=== PATIENT | female | born 1980 | race African-American/Black ===

== ENCOUNTER 2016-11-06 11:31 | Emergency (ER) | payer MEDICAID ==
[~2016-11-06] VITALS: Ht 172.7 cm; Wt 81.6 kg
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
[2016-11-06 12:24] LABS: BASOPHILS % (AUTO) 0.6 % (0.0-2.0); EOSINOPHILS % (AUTO) 0.1 % (0.0-3.0); LYMPHOCYTES % (AUTO) 15.3 % (20.0-45.0); MEAN CORPUSCULAR HGB CONC 34.1 G/DL (32.0-36.0); MEAN CORPUSCULAR VOLUME 94 FL (80-99); MEAN PLATELET VOLUME 6.4 FL (6.5-10.1); MONOCYTES % (AUTO) 4.8 % (1.0-10.0); NEUTROPHILS % (AUTO) 79.3 % (45.0-75.0); PLATELET COUNT 263 K/UL (150-450); RED BLOOD COUNT 4.16 M/UL (4.20-5.40); RED CELL DISTRIBUTION WIDTH 11.6 % (11.6-14.8); WHITE BLOOD COUNT 15.1 K/UL (4.8-10.8)
[2016-11-06 12:30] LABS: APPEARANCE,URINE CLEAR; KETONES,URINE 3+ (NEGATIVE); LEUKOCYTE ESTERASE ,URINE 2+ (NEGATIVE); NITRITE,URINE NEGATIVE (NEGATIVE); PH,URINE 8 (4.5-8.0); PROTEIN,URINE NEGATIVE (NEGATIVE); UROBILINOGEN,URINE NORMAL MG/DL (0.0-1.0)
[2016-11-06 12:41] LABS: ANION GAP 12 (5-15); CALCIUM 9.1 mg/dL (8.6-10.2); CARBON DIOXIDE 27 mEQ/L (20-30); CHLORIDE 103 mEQ/L (98-107); CREATININE 0.8 mg/dL (0.5-0.9); GLOMERULAR FILTRATION RATE > 60 mL/min (>60); HEMOLYSIS 0; POTASSIUM 3.6 mEQ/L (3.4-4.9); SODIUM 142 mEQ/L (135-145)
[2016-11-06 12:42] LABS: BACTERIA,URINE FEW /HPF; RBC,URINE 0-2 /HPF (0 - 2); SQUAMOUS EPITHELIAL CELL,UR MODERATE /LPF (NONE/OCC)
[2016-11-06] MEDS ORDERED: NITROFURANTOIN100 M2 ORAL (13:27)
[2016-11-06 13:37] VITALS: BP 144/98
--- NOTE | 2016-11-06 14:03 | Diagnostic Imaging Report ---
Indication: Dyspnea Comparison: None A single view chest radiograph was obtained. Findings: Cardiomediastinal appearance is within normal limits for age. Pulmonary vascularity is appropriate. The diaphragmatic contour is smooth and costophrenic angles are sharp. No pleural effusions are identified. The bones are unremarkable. Impression: No acute findings
--- NOTE | 2016-11-09 15:59 | Cardiology Report ---
APPROVED REPORT EKG Measurement Heart [id number] [place] [id number] Normal sinus rhythm Normal ECG
== END 2016-11-06 13:37 | disposition home or self-care (01) ==
LOC: EMR 12:00
DX: R42 Dizziness and giddiness (principal); N39.0 Urinary tract infection, site not specified
CPT/HCPCS: 36415; 71010; 80048; 80300; 81003; 81025; 85025; 93005; 99284

== ENCOUNTER 2016-11-08 20:32 | Emergency (ER) | payer MEDICAID ==
[~2016-11-08] VITALS: Ht 172.7 cm; Wt 81.6 kg
[~2016-11-08 20:32] MED LIST: NITROFURANTOIN100 M2 ORAL
[2016-11-08 20:52] VITALS: BP 143/97
--- NOTE | 2016-11-08 21:29 | Emergency Room Report ---
History of Present Illness General Chief Complaint: Dizziness Source: Patient Present Illness HPI [id number] walk-in here again for dizziness. Was seen/evaluated earlier this week. UA showed UTI. Urine tox + for MJ Patient is currently taking abx for UTI Symptoms have persisted Last time she smoked MJ was 4 days ago Symptoms include palpitations, chest tightness, subjective SOB particularly when ambulating, moving. As per dizziness, she means lightheadedness. She denies room/self spinning. Denies symptoms of vertigo such as dizziness when moving head, changing position Denies associated headache, neck pain/stiffness, fever/chills Is on control Denies leg pain/swelling, self/fam history of DVT/PE She states under "normal life stress." Has 2 kids at home Denies history of anxiety, depression, panic attacks But does state she "couldnt get into my mom's small car earlier" to come to ED because she felt claustrophobic Patient intermittently crying/weepy, stating she's "not one of those people" who have anxiety, "mental problems." Allergies: Coded Allergies: No Known Allergies (Unverified , 11/06/16) Patient History Past Medical History: none Past Surgical History: none Pertinent Family History: none Social History: Reports: drug use Last Menstrual Period: Last month Now: No Immunizations: UTD Reviewed Nursing Documentation: PMH: Agreed, PSxH: Agreed Nursing Documentation-PMH Past Medical History: No Stated History Review of Systems All Other Systems: negative except mentioned in HPI Physical Exam Vital Signs Date Time Temp Pulse Resp B/P (MAP) Pulse Ox O2 Delivery O2 Flow Rate FiO2 11/08/16 20:43 98.8 80 17 143/97 98 Room Air Sp02 EP Interpretation: reviewed, normal General Appearance: normal inspection, well appearing, no apparent distress, alert, GCS 15, non-toxic Head: normocephalic, atraumatic Eyes: bilateral eye PERRL, bilateral eye EOMI ENT: normal ENT inspection, hearing grossly normal, normal voice Neck: normal inspection, full range of motion, supple, no bony tend Respiratory: normal inspection, lungs clear, normal breath sounds, no respiratory distress, no retraction, no wheezing Cardiovascular #1: regular rate, rhythm, no edema Gastrointestinal: normal inspection, normal bowel sounds, non tender, soft, no guarding, no hernia Genitourinary: no CVA tenderness Musculoskeletal: normal inspection, back normal, normal range of motion, Tony' s Sign negative Neurologic: normal inspection, alert, oriented x3, responsive, cotton header III-XII nml as tested, motor strength/tone normal, cerebellar normal, normal gait, speech normal Psychiatric: normal inspection, judgement/insight normal, mood/affect normal Skin: normal inspection, normal color, no rash Medical Decision Making Diagnostic Impression: Primary Impression: Light-headed feeling Additional Impression: Anxiety ER Course Doubt CVA or central nervous or peripheral nervous system process given no focal neuro deficits, no cerebellar signs, no meningismus, no tinnitus, no symptoms c/w peripheral vertigo Doubt PE given normal D-dimer, normal O2 sat, not tachypnic or tachycardic Doubt ACS given duration for symptoms, serial normal ECG without ischemia Strong suspicion for anxiety given feelings of claustrophobia/agorophobia, palpitations, subjective SOB and improved symptoms with PO ativan in ED Leuks downtrending from previous visit No obvious metabolic derangement WilL Rx short course ativan Advised completion of Abx for UTI PMD followup in 2-3 days Last Vital Signs Date Time Temp Pulse Resp B/P (MAP) Pulse Ox O2 Delivery O2 Flow Rate FiO2 11/08/16 20:52 98.8 84 15 143/97 98 Room Air Status: improved Disposition: HOME, SELF-CARE Scripts Lorazepam* (ATIVAN*) 0.5 Mg Tablet 0.5 MG ORAL BID for anxiety for 7 Days, #1 TAB Prov: RENUKA GALVIN M.D. 11/08/16 RENUKA GLAVIN M.D. Nov 08, 2016 21:29
[2016-11-08] MEDS ORDERED: LORazepam 0.5mg tab ORAL ONE (21:30)
[2016-11-08 21:50] LABS: BASOPHILS % (AUTO) 0.8 % (0.0-2.0); EOSINOPHILS % (AUTO) 0.3 % (0.0-3.0); LYMPHOCYTES % (AUTO) 19.6 % (20.0-45.0); MEAN CORPUSCULAR HEMOGLOBIN 31.3 PG (27.0-31.0); MEAN CORPUSCULAR HGB CONC 33.2 G/DL (32.0-36.0); MEAN CORPUSCULAR VOLUME 94 FL (80-99); MEAN PLATELET VOLUME 6.3 FL (6.5-10.1); MONOCYTES % (AUTO) 6.1 % (1.0-10.0); NEUTROPHILS % (AUTO) 73.2 % (45.0-75.0); PLATELET COUNT 294 K/UL (150-450); RED BLOOD COUNT 4.41 M/UL (4.20-5.40); RED CELL DISTRIBUTION WIDTH 11.2 % (11.6-14.8); WHITE BLOOD COUNT 13.4 K/UL (4.8-10.8)
[2016-11-08 22:11] LABS: TROPONIN I < 0.30 ng/mL (<=0.30)
[2016-11-08 22:14] LABS: ALANINE AMINOTRANSFERASE 9 U/L (3-33); ALBUMIN/GLOBULIN RATIO 1.5 (1.0-2.7); ANION GAP 14 (5-15); ASPARTATE AMINO TRANSFERASE 12 U/L (5-40); CALCIUM 9.5 mg/dL (8.6-10.2); CARBON DIOXIDE 24 mEQ/L (20-30); CHLORIDE 103 mEQ/L (98-107); CREATININE 0.9 mg/dL (0.5-0.9); GLOMERULAR FILTRATION RATE > 60 mL/min (>60); HEMOLYSIS 5; POTASSIUM 3.6 mEQ/L (3.4-4.9); SODIUM 141 mEQ/L (135-145); TOTAL PROTEIN 7.2 g/dL (6.6-8.7)
[2016-11-08 22:24] LABS: CKMB < 1.5 ng/mL (< 3.8)
[2016-11-08] MEDS ORDERED: ATIVAN0.5 MG ORAL (22:41)
[2016-11-08 22:52] VITALS: BP 121/82
[2016-11-08 23:59] VITALS: BP 121/82
--- NOTE | 2016-11-10 19:06 | Cardiology Report ---
APPROVED REPORT EKG Measurement Heart [id number] [place] [id number] Normal sinus rhythm Normal ECG
== END 2016-11-08 22:59 | disposition home or self-care (01) ==
LOC: EMR 21:30
DX: R42 Dizziness and giddiness (principal); F41.9 Anxiety disorder, unspecified; Z79.3 Long term (current) use of hormonal contraceptives
CPT/HCPCS: 36415; 80053; 82553; 84484; 85025; 85379; 93005; 99283

== ENCOUNTER 2019-09-27 13:36 | Emergency (ER) | payer MEDICAID ==
[~2019-09-27] VITALS: Ht 170.2 cm; Wt 89.4 kg
[~2019-09-27 13:36] MED LIST changes: +ATIVAN0.5 MG ORAL
--- NOTE | 2019-09-27 14:16 | Emergency Room Report ---
History of Present Illness General Chief Complaint: Lower Extremity Injury Source: Patient Present Illness HPI 39-year-old female presents to the emergency department complaining of 7 out of 10 severity localized pain, tenderness and swelling to the right fourth toe after stubbing it on a dumbbell last night. Patient reports pain is exacerbated upon taking a step. Patient reports she is able to weight-bear on the foot however when she attempts to push off while walking she has exacerbation of pain. She denies bruising, open wounds or bleeding. She denies paresthesias, skin color changes or loss of gross motor movement in the affected extremities. Patient reports pain with flexing the toes. No other aggravating or relieving factors at this time. She states she is not taking any medications for her symptoms. She denies significant pmhx. Allergies: Coded Allergies: No Known Allergies (Unverified , 11/06/16) COVID-19 Screening Contact w/high risk pt: No Experienced COVID-19 symptoms?: No COVID-19 Testing performed WATER/WASTEWATER ENGINEER: No Patient History Past Medical History: see triage record Past Surgical History: none Pertinent Family History: none Last Menstrual Period: 09/20/19 Now: No Reviewed Nursing Documentation: PMH: Agreed; PSxH: Agreed Nursing Documentation-PMH Past Medical History: No Stated History Review of Systems All Other Systems: negative except mentioned in HPI Physical Exam Vital Signs Date Time Temp Pulse Resp B/P (MAP) Pulse Ox O2 Delivery O2 Flow Rate FiO2 09/27/19 13:43 98.4 67 16 133/82 (99) 99 Room Air Sp02 EP Interpretation: reviewed, normal General Appearance: no apparent distress, alert, GCS 15, non-toxic Head: normocephalic, atraumatic Eyes: bilateral eye normal inspection, bilateral eye PERRL ENT: hearing grossly normal, normal voice Neck: full range of motion Respiratory: lungs clear, normal breath sounds, speaking full sentences Cardiovascular #1: regular rate, rhythm, normal capillary refill Cardiovascular #2: 2+ dorsalis pedis (R) Musculoskeletal: back normal, normal range of motion, gait/station normal, tender - Right 4th toe, swelling - Right 4th toe Neurologic: alert, motor strength/tone normal, oriented x3, sensory intact, responsive, speech normal Psychiatric: judgement/insight normal Skin: no rash, normal color Medical Decision Making PA Attestation Dr. Vergara is my supervising Physician whom patient management has been discussed with. Diagnostic Impression: Primary Impression: Broken toe Qualified Codes: S92.911A - Unspecified fracture of right toe(s), initial encounter for closed fracture ER Course 39-year-old female presents to the emergency department complaining of 7 out of 10 severity localized pain, tenderness and swelling to the right fourth toe after stubbing it on a dumbbell last night. Patient reports pain is exacerbated upon taking a step. Patient reports she is able to weight-bear on the foot however when she attempts to push off while walking she has exacerbation of pain. She denies bruising, open wounds or bleeding. She denies paresthesias, skin color changes or loss of gross motor movement in the affected extremities. Patient reports pain with flexing the toes. No other aggravating or relieving factors at this time. She states she is not taking any medications for her symptoms. She denies significant pmhx. Ddx considered but are not limited to Fracture, dislocation, contusion, Sprain/ Strain/Spasm just to name a few. Vital signs: are WNL, pt. is afebrile H&PE are most consistent with musculoskeletal injury will perform imaging to r/ o fractures/dislocations. ORDERS: - X-ray Right toes 3 views - Questionable small fracture - non-displaced on the medial aspect of the proximal phalanx of the 4th right toe. per preliminary read in ED, and signed by ADDY Burgess, my supervising physician has reviewed, and agrees with my interpretation. ED INTERVENTIONS: - Ice pack applied to affected area. Pt. declines pain medications at this time. 4th right toe ventura taped and hard walking shoe splint was applied by the RN. Pt. remains neurovascularly intact. -I do not identify an emergent condition at this time. With current presentation , pt. is stable for close outpatient follow up and conservative treatment. D/ w pt. to return promptly to ED with worsening or new symptoms.- Pt. verbalizes' understanding and agreement with proposed treatment plan. DISCHARGE: At this time pt. is stable for d/c to home. Will provide printed patient care instructions, and any necessary prescriptions. Care plan and follow up instructions have been discussed with the patient prior to discharge. Other X-Ray Diagnostic Results Other X-Ray Diagnostic Results : X-Ray ordered: Right toes 3 views # of Views/Limited Vs Complete: 3 View Indication: Pain EP Interpretation: Yes PA Xray: Interpretation reviewed, by supervising MD Interpretation: no dislocation, no soft tissue swelling, other - Questionable small fracture - non-displaced on the medial aspect of the proximal phalanx of the 4th right toe Impression: No acute disease Electronically Signed by: Dara Burgess PA-C Last Vital Signs Date Time Temp Pulse Resp B/P (MAP) Pulse Ox O2 Delivery O2 Flow Rate FiO2 09/27/19 13:43 98.4 67 16 133/82 (99) 99 Room Air Disposition: HOME, SELF-CARE Condition: Stable Patient Instructions: Toe Fracture Additional Instructions: Take medications as directed. Follow up with a Primary Care Provider in 3-5 days, even if your symptoms have resolved. --Please review list of primary care clinics, if you do not already have a primary care provider Return sooner to ED if new symptoms occur, or current symptoms become worse. - Please note that this Emergency Department Report was dictated using [employer] production specialist technology software, occasionally this can lead to erroneous entry secondary to interpretation by the dictation equipment. Dara Burgess Sep 27, 2019 14:16
[2019-09-27] MEDS ORDERED: IBUPROFEN600 M1 ORAL (14:47)
[2019-09-27] MEDS ORDERED: ACETAMINOPHEN-1 EAC1 ORAL (14:47)
[2019-09-27 14:53] VITALS: BP 130/79
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
== END 2019-09-27 14:53 | disposition home or self-care (01) ==
LOC: EMR 14:21
DX: S92.514A Nondisplaced fracture of proximal phalanx of right lesser toe(s), initial encounter for closed fracture (principal); W22.8XXA Striking against or struck by other objects, initial encounter; Y92.9 Unspecified place or not applicable
CPT/HCPCS: 73660; Z7502; 99283